=== PATIENT | female | born 1995 | race Caucasian/White ===

== ENCOUNTER 2016-10-17 19:00 | Emergency (ER) | payer SELFPAY ==
[~2016-10-17] VITALS: Ht 165.1 cm; Wt 68.0 kg
[~2016-10-17 19:00] MED LIST: DOCU1CAP39 PO; FERR324T4 PO; GABA400 PO; PERC5TAB12 PO; POLY17S PO; RIVA10 PO; TUB TRANSFER BENCH; Z.0.WHEELELR; [UNRECOGNIZED DRUG - CODE]; [UNRECOGNIZED DRUG - CODE]; [UNRECOGNIZED DRUG - SUPPLY]
[2016-10-17 19:03] VITALS: BP 126/69; PULSE 118; RESP 20; TEMP 98; O2SAT 96
[2016-10-17] MEDS ORDERED: oxyCODONE/ACETAMINOPHEN 5 MG/325 MG TAB PO ONE (19:30)
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
--- NOTE | 2016-10-17 20:13 | RADRPT ---
EXAM DATE/TIME: 10/17/2016 19:47 [facility] COMPARISON: No previous studies available for comparison. INDICATIONS : Right foot pain. Deformity top of foot. MEDICAL HISTORY : None. SURGICAL HISTORY : None. ORIF ENCOUNTER: Initial ACUITY: 1 day PAIN SCORE: 8/10 LOCATION: Right lateral FINDINGS: Intramedullary carina and distal interlocking screw fixation of the distal tibia noted. Plate and screw fixation of the first metatarsal, medial and middle cuneiforms and navicular bone noted with fracture s of the screw traversing the navicular and a screw traversing the medial cuneiform and base of secon d metatarsal. A single screw also traverses the second tarsometatarsal joint. No acute fracture or di slocation. CONCLUSION: Postsurgical changes are noted. Mild dorsal soft tissue swelling. Raffi Ribeiro MD on October 17, 2016 at 20:10 Board Certified Radiologist. This report was verified electronically.
[2016-10-17] MEDS ORDERED: ULTR50TA5 PO (21:07)
[2016-11-06] MEDS ORDERED: HYDR-3288 PO (08:12)
== END 2016-10-17 21:58 | disposition home or self-care (01) ==
LOC: NEPC 19:00
DX: M79.671 Pain in right foot (principal); Z98.890 Other specified postprocedural states
CPT/HCPCS: 73630; 99283; E0113; L2114

== ENCOUNTER → 2016-11-06 | Day surgery (SDC) | payer SELFPAY ==
[~2016-11-06] VITALS: Ht 165.1 cm; Wt 63.2 kg
[~2016-11-06] MED LIST changes: +*MEPERIDINE 25 MG INJ VIAL PERIprocedural Use ONLY ONE; +ACETAMINOPHEN 1000 MG/100 ML VIAL IV ONE; +ACETAMINOPHEN/HYDROcodone 325 MG/7.5 MG TAB PO PRN; +BUPIVACAINE/EPINEPHRINE 0.25% PF 10 ML VIAL ONE; +DEXAMETHASONE SOD PHOS 4 MG/ML VIAL ONE; -DOCU1CAP39 PO; -FERR324T4 PO; -GABA400 PO; +GENTAMICIN SULFATE 80 MG/2 ML VIAL ONE; +HYDR-3288 PO; +INSULIN HUMAN REGULAR 1,000 UNITS/10 ML VIAL SQ PRN; +LACTATED RINGER'S 1000 ML IV SCH; +METOPROLOL TARTRATE 25 MG TAB PO PRN; +MIDAZOLAM HCL 2 MG/2 ML VIAL ONE; +MORPHINE SULFATE 4 MG/ML INJ IV PUSH PRN; +ONDANSETRON HCL 4 MG/2 ML VIAL IV PRN; +ONDANSETRON HCL 4 MG/2 ML VIAL IV PUSH ONE; -PERC5TAB12 PO; -POLY17S PO; +PROPOFOL 200 MG/20 ML AMP IV ONE; -RIVA10 PO; +SODIUM CHLOR 0.9% 250 ML INJ 250 ML ONE; +SODIUM CHLORID 0.9% 500 ML IV SCH; +SODIUM CHLORIDE 0.9% FLUSH 10 ML FLUSH IV FLUSH PRN; +SODIUM CHLORIDE 0.9% FLUSH 10 ML FLUSH IV FLUSH SCH; -TUB TRANSFER BENCH; +VANCOMYCIN HCL 1000 MG VIAL ONE; -Z.0.WHEELELR; -[UNRECOGNIZED DRUG - CODE]; -[UNRECOGNIZED DRUG - CODE]; -[UNRECOGNIZED DRUG - SUPPLY]; +ceFAZolin INJ 1,000 MG VIAL ONE; +ePHEDrine/NS 25 MG/5 ML SYR IV ONE; +fentaNYL CITRATE 250 MCG/5 ML AMP ONE
[2016-11-06 06:15] VITALS: BP 103/59; PULSE 66; RESP 18; TEMP 98.1; O2SAT 98
--- NOTE | 2016-11-06 08:16 | PD.OP ---
cc: Kp Gautam MD Operative Report Date of Surgery: Nov 06, 2016 Preoperative Diagnosis: Painful hardware right foot Postoperative Diagnosis: Procedure: Removal of deep hardware first and second metatarsals Removal of hardware from cuneiforms Anesthesia: Gen. Surgeon: Kp Gautam Undercar Specialist(s): DESHAUN Romero PA-C The surgical procedure was assisted by my physician geriatric assistant. My P.A. presence was necessary throughout this case for the manipulation and positioning of the surgical extremity. My P.A. was assisting me throughout the duration of this procedure. The skill set of a physician geriatric assistant was medically necessary to complete this procedure. During the surgical case the health and safety technician was working at the back table and the physician geriatric assistant was directly assisting me. Operation and Findings: Dianne is known to me from previous right midfoot fracture dislocations. Informed consent was obtained preoperatively. Patient was found to have significant pain from her hardware. Informed consent was obtained for removal of hardware. She is brought to operating room. She is given IV sedation and general anesthesia. IV antibiotics were administered. Timeout procedure was performed. Operative leg was prepped with alcohol followed by Hibiclens and draped usual sterile fashion. Procedure began with excision of the scar. Full-thickness skin was elevated. She did have hypertrophic scar. The scar was excised. At this point the EHL tendon was identified. The tendon was retracted laterally to expose the first metatarsal. The plate was now visualized. Scar tissue was incised around the plate. Each of the screws was now loosened. The screws were now removed. The plate was now elevated. The neurovascular bundle was now retracted laterally to expose the second metatarsal. The second metatarsal screw was identified under fluoroscopy. The screw was now removed using a screwdriver. Next attention was turned to the screws and the cuneiforms. Using a small per case incision over the medial aspect of the foot, the medial screws were identified. Fluoroscopy was used to help localize the screws. Scar tissue was incised around the screws. Screwdriver was used to remove the 2 screws. There were 2 screws that had broken. The portion of the screws was buried in bone was left in place. Final fluoroscopy confirmed removal of appropriate hardware. The midfoot appeared to be healed in excellent alignment. Wound was thoroughly irrigated. Hemostasis was confirmed. Incision region was infiltrated with quarter percent Marcaine for pain relief. Incision was closed with 3-0 Vicryl and 3-0 nylon. Sterile dressings were applied. Patient was awakened and transferred to recovery in stable condition. Kp Gautam MD Nov 06, 2016 08:16
--- NOTE | 2016-11-06 08:21 | RADRPT ---
EXAM DATE/TIME: 11/06/2016 07:57 [facility] COMPARISON: FOOT RIGHT COMPLETE ([id number]), October 17, 2016, 19:47. INDICATIONS : Hardware removal. MEDICAL HISTORY : None. SURGICAL HISTORY : None. ENCOUNTER: Initial ACUITY: 1 day PAIN SCORE: Non-responsive. LOCATION: Right foot. FINDINGS: There has been heart were removal from the right foot. A fragment of a cortical screw remains in the base of the second metatarsal and a second screw fragment remains in the navicular. The alignment is stable and satisfactory. CONCLUSION: Hardware removal with remaining hardware fragments which appear fully contained within the bony eleme nts. Abad Vaz MD on November 06, 2016 at 8:18 Board Certified Radiologist. This report was verified electronically.
[2016-11-06 09:56] VITALS: BP 101/51; PULSE 71; RESP 16; TEMP 98; O2SAT 99
== END | disposition home or self-care (01) ==
LOC: HSDC 05:35
PROVIDERS: ATTEND Orthopaedic Surgery Orthopaedic Trauma
DX: T84.84XA Pain due to internal orthopedic prosthetic devices, implants and grafts, initial encounter (principal)
CPT/HCPCS: 01480; 20680; 73620; 76000; J0131; J0690; J1100; J1580; J2175; J2250; J2405; J3010; J3370; J7050; J7120